=== PATIENT | female | born 1965 | race Caucasian/White ===

== ENCOUNTER → 2021-12-07 | Outpatient (CLI) | payer BC ==
[2021-12-07 16:37] LABS: HEMOGLOBIN 13.3 gm/dl (12.3-15.3); RED BLOOD COUNT 4.39 M/UL (4.00-5.10); WHITE BLOOD COUNT 5.5 K/UL (4.5-11.0)
== END ==
LOC: RT 16:03
PROVIDERS: Internal Medicine Pulmonary Disease
DX: J45.40 Moderate persistent asthma, uncomplicated (principal); R09.02 Hypoxemia
CPT/HCPCS: 36600; 82785; 82803; 85025

== ENCOUNTER → 2021-12-07 | Outpatient (CLI) | payer BC | LOC: HEART 5 13:56 | DX: R09.02 Hypoxemia (principal); R06.02 Shortness of breath | CPT/HCPCS: 94060; 94729 ==